=== PATIENT | female | born 1955 | race Caucasian/White ===

== ENCOUNTER 2018-04-29 19:26 | Inpatient (IN) | payer MEDICARE, OTHER ==
[~2018-04-29] VITALS: Ht 160 cm; Wt 124.7 kg
[2018-04-29] MEDS ORDERED: MORPHINE SULFATE 4 MG/ML CPJ (NOT FOR IM USE) IV ONE (23:15)
[2018-04-30 01:35] LABS: BASOPHILS % 0.9 % (0.0-2.0); EOSINOPHILS % 4.1 % (0.0-5.0); HEMATOCRIT. 27.9 % (36.0-48.0); HEMOGLOBIN. 9.5 g/dL (12.0-16.0); LYMPHOCYTES % 22.6 % (20.0-50.0); MEAN CORPUSCULAR HEMOGLOBIN 30.4 pg (28.0-32.0); MEAN CORPUSCULAR VOLUME 89.1 fL (81.0-99.0); MEAN PLATELET VOLUME 7.1 fl (7.4-10.4); MONOCYTES % 8.7 % (2.0-8.0); NEUTROPHILS % 63.7 % (40.0-76.0); PLATELET 360 x1000/uL (130-400); RED BLOOD CELL COUNT 3.13 mill/uL (4.2-5.4); RED CELL DISTRIBUTION WIDTH 13.3 % (11.6-14.6)
[2018-04-30 03:40] VITALS: BP 138/85
[2018-04-30 04:00] VITALS: BP_SYST 133; BP_SYST 153; BP_DIAS 85
[2018-04-30] MEDS ORDERED: [UNRECOGNIZED DRUG - OTHER] (05:02)
[2018-04-30] MEDS ORDERED: [UNRECOGNIZED DRUG - OTHER] PO (05:02)
[2018-04-30] MEDS ORDERED: NAPR-677 PO (05:02)
[2018-04-30] MEDS ORDERED: MORPHINE SULFATE 4 MG/ML CPJ (NOT FOR IM USE) IV PRN (05:30)
[2018-04-30] MEDS ORDERED: ONDANSETRON HCL 4MG/2ML INJ IV PRN (05:30)
[2018-04-30] MEDS: SODIUM CHLORIDE 0.9% 1,000 ML IV SCH ×2 (06:01→20:34)
[2018-04-30 08:00] VITALS: BP 141/80
[2018-04-30] MEDS ORDERED: CLONIDINE 0.1MG TABLET PO PRN (08:15)
[2018-04-30 09:09] LABS: CLARITY URINE CLOUDY (CLEAR); KETONES URINE NEGATIVE (NEGATIVE); LEUKOCYTE ESTERASE URINE 3+ (NEGATIVE); NITRITE URINE NEGATIVE (NEGATIVE); OCCULT BLOOD URINE TRACE (NEGATIVE); PH URINE 6.5 (4.5-8.0); PROTEIN URINE 2+ (NEGATIVE); SPECIFIC GRAVITY URINE 1.007 (1.005-1.030); UROBILINOGEN URINE 0.2 E.U./dL (0.2-1.0)
[2018-04-30 09:10] LABS: COLOR URINE PALE YELLOW (YELLOW)
[2018-04-30 09:54] LABS: BASOPHILS % 1.9 % (0.0-2.0); EOSINOPHILS % 5.9 % (0.0-5.0); HEMATOCRIT. 26.8 % (36.0-48.0); HEMOGLOBIN. 9.1 g/dL (12.0-16.0); MEAN CORPUSCULAR HEMOGLOBIN 30.6 pg (28.0-32.0); MEAN CORPUSCULAR VOLUME 89.7 fL (81.0-99.0); MEAN PLATELET VOLUME 7.1 fl (7.4-10.4); MONOCYTES % 9.5 % (2.0-8.0); NEUTROPHILS % 61.7 % (40.0-76.0); PLATELET 344 x1000/uL (130-400); RED BLOOD CELL COUNT 2.99 mill/uL (4.2-5.4)
[2018-04-30 10:25] LABS: *AMPHETAMINES SCREEN URINE NEGATIVE (NEGATIVE); *BARBITURATES SCREEN URINE NEGATIVE (NEGATIVE); *BENZODIAZEPINES SCREEN URINE NEGATIVE (NEGATIVE)
[2018-04-30 10:26] LABS: *COCAINE SCREEN URINE NEGATIVE (NEGATIVE); CANNABINOID URINE SCREEN NEGATIVE (NEGATIVE); METHADONE URINE SCREEN NEGATIVE (NEGATIVE); OPIATES URINE SCREEN PRESUMTIVE POSITIVE (NEGATIVE); PHENCYCLIDINE URINE SCREEN NEGATIVE (NEGATIVE)
[2018-04-30 10:33] LABS: CHLORIDE 96 mEq/L (98-107)
[2018-04-30 10:39] LABS: CREATINE KINASE 44 IU/L (26-192); HDL CHOLESTEROL 40 mg/dL (40-59); LDL CHOLESTEROL 87 mg/dL (5-100)
[2018-04-30 10:44] LABS: CREATINE KINASE MB FRACTION 1.7 ng/mL (0.5-3.6)
[2018-04-30 12:00] VITALS: BP 149/80
[2018-04-30] MEDS: OMEPRAZOLE 20MG CAPSULE EXTENDED RELEASE PO SCH (13:45)
[2018-04-30] MEDS: CLONIDINE 0.1MG TABLET PO SCH ×2 (13:45→21:33)
[2018-04-30 16:00] VITALS: BP 127/84
[2018-04-30 16:20] LABS: CREATINE KINASE 34 IU/L (26-192); CREATINE KINASE MB FRACTION 1.6 ng/mL (0.5-3.6)
[2018-04-30] MEDS: HYDROCODONE/ACETAMINOPHEN 5/325MG TABLET PO PRN ×2 (18:45→21:37)
[2018-04-30 20:00] VITALS: BP 120/68
[2018-05-01] VITALS: BP 151/67
[2018-05-01 04:00] VITALS: BP 128/65
[2018-05-01 06:18] LABS: BASOPHILS % 1.1 % (0.0-2.0); EOSINOPHILS % 6.3 % (0.0-5.0); HEMATOCRIT. 23.1 % (36.0-48.0); HEMOGLOBIN. 7.9 g/dL (12.0-16.0); LYMPHOCYTES % 27.4 % (20.0-50.0); MEAN CORPUSCULAR HEMOGLOBIN 30.7 pg (28.0-32.0); MEAN CORPUSCULAR VOLUME 89.9 fL (81.0-99.0); MEAN PLATELET VOLUME 7.4 fl (7.4-10.4); MONOCYTES % 10.3 % (2.0-8.0); NEUTROPHILS % 54.9 % (40.0-76.0); PLATELET 310 x1000/uL (130-400); RED BLOOD CELL COUNT 2.57 mill/uL (4.2-5.4); RED CELL DISTRIBUTION WIDTH 13.5 % (11.6-14.6)
[2018-05-01] MEDS: CLONIDINE 0.1MG TABLET PO SCH ×3 (06:28→22:01)
[2018-05-01] MEDS: SODIUM CHLORIDE 0.9% 1,000 ML IV SCH ×2 (06:28→20:12)
[2018-05-01 07:01] LABS: PHOSPHORUS 4.7 mg/dL (2.5-4.9)
[2018-05-01 08:00] VITALS: BP 135/74
[2018-05-01] MEDS: OMEPRAZOLE 20MG CAPSULE EXTENDED RELEASE PO SCH (09:45)
[2018-05-01 10:02] LABS: TOTAL IRON BINDING CAPACITY 175 ug/dL (250-450)
[2018-05-01 10:30] LABS: FOLIC ACID (FOLATE) SERUM 7.9 ng/mL (>5.38)
[2018-05-01 12:00] VITALS: BP 154/80
[2018-05-01] MEDS: NYSTATIN POWDER 15GM TOP SCH ×2 (15:00→17:00)
[2018-05-01 16:00] VITALS: BP 145/69
[2018-05-01 20:00] VITALS: BP 134/64
[2018-05-01] MEDS: HYDROCODONE/ACETAMINOPHEN 5/325MG TABLET PO PRN (20:18)
[2018-05-02] VITALS: BP 151/73
[2018-05-02 04:00] VITALS: BP 131/64
[2018-05-02] MEDS: CLONIDINE 0.1MG TABLET PO SCH ×3 (06:36→21:31)
[2018-05-02] MEDS: OMEPRAZOLE 20MG CAPSULE EXTENDED RELEASE PO SCH (06:36)
[2018-05-02 07:56] LABS: BASOPHILS % 1.2 % (0.0-2.0); EOSINOPHILS % 6.4 % (0.0-5.0); HEMATOCRIT. 25.3 % (36.0-48.0); HEMOGLOBIN. 8.2 g/dL (12.0-16.0); LYMPHOCYTES % 23.3 % (20.0-50.0); MEAN CORPUSCULAR HEMOGLOBIN 29.8 pg (28.0-32.0); MEAN CORPUSCULAR VOLUME 91.7 fL (81.0-99.0); MEAN PLATELET VOLUME 7.4 fl (7.4-10.4); MONOCYTES % 9.7 % (2.0-8.0); NEUTROPHILS % 59.4 % (40.0-76.0); PLATELET 305 x1000/uL (130-400); RED BLOOD CELL COUNT 2.76 mill/uL (4.2-5.4); RED CELL DISTRIBUTION WIDTH 13.8 % (11.6-14.6)
[2018-05-02 08:00] VITALS: BP 160/74
[2018-05-02 09:11] LABS: COMPLEMENT C3 93 mg/dL (82-167)
[2018-05-02] MEDS ORDERED: SODIUM POLYSTYRENE SULFONATE 15 G/60 ML BOT PO SCH (09:45)
[2018-05-02 10:36] LABS: BG BASE EXCESS -6.3 mmol/L (-2.0-2.0); BG CARBOXYHEMOGLOBIN 1.7 % (0.5-1.5); BG DEOXYHEMOGLOBIN 3.7 % (0.0-5.0); BG FRACTION INSPIRED OXYGEN 21; BG HCO3 ACT 18.5 mmol/L (22.0-26.0); BG METHEMOGLOBIN 0.3 % (0.0-1.5); BG OXYGEN SATURATION 96.2 % (92.0-98.5); BG OXYHEMOGLOBIN 94.3 % (94.0-97.0); BG PCO2 33.6 mmHg (35.0-45.0); BG PH 7.359 (7.350-7.450); BG PO2 88.6 mmHg (75.0-100.0); BG SAMPLE SITE RIGHT BRACHIAL; BG TOTAL HEMOGLOBIN 8.3 g/dL (12.0-18.0); BG VENT MODE ROOM AIR
[2018-05-02] MEDS: NYSTATIN POWDER 15GM TOP SCH ×3 (10:43→18:38)
[2018-05-02 12:00] VITALS: BP 162/79
[2018-05-02] MEDS: CITRIC ACID/SODIUM CITRATE SOLN 30ML UDC PO SCH ×2 (13:00→17:00)
[2018-05-02] MEDS: SODIUM CHLORIDE 0.9% 1,000 ML IV SCH (14:41)
[2018-05-02 16:00] VITALS: BP 168/80
[2018-05-02] MEDS: FERROUS SULFATE 325MG TABLET PO SCH (18:38)
[2018-05-02] MEDS: TERBINAFINE HCL 1% CREAM 30GM TOP SCH (18:39)
[2018-05-02 20:00] VITALS: BP 127/64
[2018-05-02] MEDS: NITROFURANTOIN 100MG M/M CAPSULE PO SCH (20:26)
[2018-05-03] VITALS: BP 169/73
[2018-05-03 04:00] VITALS: BP 125/71
[2018-05-03] MEDS: CLONIDINE 0.1MG TABLET PO SCH ×2 (05:11→13:42)
[2018-05-03 06:15] LABS: BASOPHILS % 1.2 % (0.0-2.0); EOSINOPHILS % 5.9 % (0.0-5.0); HEMATOCRIT. 26.2 % (36.0-48.0); HEMOGLOBIN. 8.8 g/dL (12.0-16.0); LYMPHOCYTES % 16.2 % (20.0-50.0); MEAN CORPUSCULAR HEMOGLOBIN 30.7 pg (28.0-32.0); MEAN CORPUSCULAR VOLUME 91.2 fL (81.0-99.0); MEAN PLATELET VOLUME 7.6 fl (7.4-10.4); MONOCYTES % 8.2 % (2.0-8.0); NEUTROPHILS % 68.5 % (40.0-76.0); PLATELET 311 x1000/uL (130-400); RED BLOOD CELL COUNT 2.87 mill/uL (4.2-5.4); RED CELL DISTRIBUTION WIDTH 13.5 % (11.6-14.6)
[2018-05-03 07:41] LABS: PHOSPHORUS 3.7 mg/dL (2.5-4.9)
[2018-05-03 08:00] VITALS: BP 186/77
[2018-05-03] MEDS: FERROUS SULFATE 325MG TABLET PO SCH ×2 (08:18→11:51)
[2018-05-03] MEDS: NITROFURANTOIN 100MG M/M CAPSULE PO SCH (08:18)
[2018-05-03] MEDS: CITRIC ACID/SODIUM CITRATE SOLN 30ML UDC PO SCH ×2 (08:18→11:51)
[2018-05-03] MEDS: TERBINAFINE HCL 1% CREAM 30GM TOP SCH (08:19)
[2018-05-03] MEDS: NYSTATIN POWDER 15GM TOP SCH ×2 (08:19→11:51)
[2018-05-03] MEDS ORDERED: MAGNESIUM SULFATE 2 GM in DEXTROSE 5% WATER 50 ML IV NR (09:00)
[2018-05-03] MEDS ORDERED: AMLODIPINE 2.5MG TABLET PO SCH ×2 (09:00→21:00)
[2018-05-03] MEDS ORDERED: FAMOTIDINE 20MG TABLET PO SCH (09:00)
[2018-05-03] MEDS ORDERED: AMLODIPINE 10MG TABLET PO SCH (11:06)
[2018-05-03 12:00] VITALS: BP 187/77
[2018-05-03 13:03] VITALS: BP 165/75
[2018-05-03 13:07] LABS: ANTI-NUCLEAR ANTIBODIES DIRECT Negative (Negative)
== END 2018-05-03 14:57 | DRG 536 ==
LOC: ER 19:26 → 6EST 04-30 01:19 → EDBEDREQ 04-30 01:21 → EDBEDREQTM 04-30 01:21 → ENRESERV 04-30 01:59 → 6EST 04-30 16:27
PROVIDERS: ADMIT Internal Medicine; ATTEND Internal Medicine
DX: S72.002A Fracture of unspecified part of neck of left femur, initial encounter for closed fracture (principal); N17.9 Acute kidney failure, unspecified; E87.2 Acidosis; E87.1 Hypo-osmolality and hyponatremia; N39.0 Urinary tract infection, site not specified; L97.429 Non-pressure chronic ulcer of left heel and midfoot with unspecified severity; D63.8 Anemia in other chronic diseases classified elsewhere; D50.9 Iron deficiency anemia, unspecified; E78.5 Hyperlipidemia, unspecified; E86.9 Volume depletion, unspecified; N27.1 Small kidney, bilateral; B35.3 Tinea pedis; M85.861 Other specified disorders of bone density and structure, right lower leg; M85.872 Other specified disorders of bone density and structure, left ankle and foot; I12.9 Hypertensive chronic kidney disease with stage 1 through stage 4 chronic kidney disease, or unspecified chronic kidney disease; N18.9 Chronic kidney disease, unspecified; Y93.01 Activity, walking, marching and hiking; Z53.29 Procedure and treatment not carried out because of patient's decision for other reasons; W01.0XXA Fall on same level from slipping, tripping and stumbling without subsequent striking against object, initial encounter; Z59.0 Homelessness; Z99.3 Dependence on wheelchair; Y99.8 Other external cause status; Y92.520 Airport as the place of occurrence of the external cause
CPT/HCPCS: 36415; 36600; 71045; 72170; 72192; 73562; 73590; 73610; 73700; 76770; 80048; 80061; 80305; 82375; 82533; 82550; 82553; 82607; 82728; 82746; 82805; 83540; 83550; 83735; 84100; 84134; 84443; 84484; 86038; 86160; 86850; 86900; 87077; 87186; 93005; 93306; 93970; 96374; 99285; J2270; J3475; J7030; J7060